=== PATIENT | female | born 1990 | race Two or more races ===

== ENCOUNTER 2018-02-08 12:56 | Emergency (ER) | payer SELFPAY ==
[2018-02-08 14:26] LABS: PLATELET COUNT 441 10^3/uL (150-400)
[2018-02-08] MEDS ORDERED: NS 1,000 ML IV ONE (15:29)
[2018-02-08] MEDS ORDERED: HYDROmorphONE/DILAUDID 2 MG/ML INJ IVP ONE (15:29)
[2018-02-08] MEDS ORDERED: ONDANSETRON 4 MG/2 ML VIAL IVP ONE (15:29)
--- NOTE | 2018-02-08 15:34 | EDPHY ---
H & P Stated Complaint: abd pain x3 days.,chills, vomited x3 today. denies diarrhea Time Seen by Provider: 02/08/18 14:23 HPI/ROS: CHIEF COMPLAINT: Abdominal pain HISTORY OF PRESENT ILLNESS: This is a 27-year-old female who presents with upper abdominal pain and vomiting. She has a history of gastric bypass performed 1 year ago in [facility], [place], operated by [facility]. It is unclear why this procedure was performed--reports a long history of abdominal pain worsened by eating. She has also had a cholecystectomy. Following her gastric bypass she has been hospitalized almost monthly. During these hospitalizations she has required TPN. She was last hospitalized about 3 weeks ago and at that time had a jejunostomy placed. Comes in today with almost 3 days of gradually worsening abdominal pain. She has vomited 3 times today and vomited just prior to my interview with her. She had a small loose stool after arriving in the emergency department. She has not had fever. She denies urinary symptoms. For chronic pain she takes gabapentin 500 mg twice daily, oxycodone 15 mg twice daily, and amitriptyline 50 mg at bedtime. She uses Zofran daily for nausea and vomiting. She ran out of her medications and took her last dose is the afternoon of the day before yesterday. She has come to the [facility] from [place] with the hope that she can find a specialist that can figure out what is causing her symptoms. REVIEW OF SYSTEMS: A ten point review of systems was performed and is negative with the exception of the items mentioned in the HPI. Past medical history: Chronic abdominal pain Past surgical history: 1. Gastric bypass 1 year ago 2. Jejunostomy placed about 3 weeks ago 3. Tubal ligation 4. Cholecystectomy Family history: Positive for diabetes and reactive airway disease Social history: She lives in [facility], [place], operated by [facility]. She is here with a cousin. She does not use tobacco products, alcohol, or illicit drugs. General Appearance: Alert. Vital signs reviewed. Blood pressure 105/58. Eyes: Pupils equal and round, no conjunctival injection, no discharge. Anicteric. ENT, Mouth: Mucous membranes are slightly dry, no oropharyngeal erythema or edema. Neck: No lymphadenopathy, supple. Respiratory: Lungs are clear to auscultation; no wheezes, rales, or rhonchi. Cardiovascular: Regular rate and rhythm; no murmur, rub, or gallop. Gastrointestinal: Abdomen is soft and mildly diffusely tender, no masses or organomegaly, bowel sounds decreased. Skin: Warm and dry, no rashes on exposed skin, normal color. Multiple tattoos. Back: Nontender to palpation over the thoracolumbar spine. No CVAT. Extremities: No lower extremity edema, no calf tenderness or swelling. Neurological: Alert and oriented. Moving all four extremities easily and equally. Psychiatric: Normal affect. - Personal History LMP (Females 10-55): 22-28 Days Ago Current Tetanus Diphtheria and Acellular Pertussis (TDAP): Yes Tetanus Vaccine Date: 2016 - Medical/Surgical History Hx Asthma: No Hx Chronic Respiratory Disease: No Hx Diabetes: No Hx Cardiac Disease: No Hx Renal Disease: No Hx Cirrhosis: No Hx Alcoholism: No Hx HIV/AIDS: No Hx Splenectomy or Spleen Trauma: No Other PMH: Med hx-"not eating",tube feeding pain. Surg-gastric bypass - Social History Smoking Status: Never smoked Constitutional: Initial Vital Signs Temperature (C) 37.0 C 02/08/18 13:04 Heart Rate 88 02/08/18 13:04 Respiratory Rate 16 02/08/18 13:04 Blood Pressure 105/58 L 02/08/18 13:04 O2 Sat (%) 99 02/08/18 13:04 O2 Delivery Mode Room Air Allergies/Adverse Reactions: No Known Allergies Allergy (Verified 02/08/18 13:02) Home Medications: Medication Instructions Recorded Amitriptyline HCl 02/08/18 Amitriptyline HCl [Elavil 50 mg 50 mg PO HS #21 tab 02/08/18 (*)] Gabapentin 02/08/18 Gabapentin 600 mg PO BID #42 tablet 02/08/18 Oxycodone HCl 02/08/18 Oxycodone HCl 15 mg PO BID 21 Days capsule 02/08/18 Zofran 02/08/18 Medical Decision Making - Diagnostics Imaging Results: Imaging Impressions Abdomen X-Ray 02/08/18 14:09 Impression: 1. Mildly prominent air-filled loops of small bowel left upper quadrant below the left hemidiaphragm. Bowel anastomotic sutures are also noted left upper quadrant. If symptoms persist, consider CT imaging to evaluate for possible focal point of obstruction. 2. Percutaneous small bowel feeding tube is present left mid abdomen. Abdomen CT 02/08/18 15:29 Impression: 1. No acute findings in the abdomen or pelvis. 2. Indeterminate anterior mesenteric nodule, which could be related to reactive node. Follow-up CT is recommended in 3 months to assess for change. 3. Additional findings as above. Findings discussed with Dr. Queta Clay on 02/08/2018 at 16:00. ED Course/Re-evaluation: 27-year-old female status post gastric bypass for unclear reasons with persistent abdominal pain and multiple hospitalizations for malnutrition. Most recently she had a jejunal feeding tube placed. She presents today with worsening abdominal pain and vomiting. She has also run out of her medications , which include an opiate. She has been without medications for 2 days. She spoke with her caregiver in [place] who recommended evaluation. Patient understands that she could be experiencing an exacerbation of her chronic abdominal pain, could have a bowel obstruction, could be withdrawing from opiates. She is hoping that an answer can be found to her chronic pain. 4:30 p.m.: Patient re-evaluated. She continues with some abdominal tenderness , no guarding. She has not had any further vomiting after receiving 1 L IV normal saline, 4 mg Zofran IV, and 0.5 mg Dilaudid IV. She feels somewhat better and thinks that she will likely be fine at home when she can resume her medications. I am writing prescriptions for 21 days worth of her oxycodone, gabapentin, and amitriptyline--in the doses that she provided except for the gabapentin which she stated was 500 mg and I am prescribing 600 mg pills. She is given referral to Gastroenterology and for primary care. She is advised to try to gather up her medical records from [place]. She understands that she will not receive further opiate prescriptions from the emergency department. We reviewed the danger signs that should prompt her to return for re-evaluation. I reviewed her radiographs and laboratory studies. She Has some bacteriuria and pyuria but no urinary symptoms whatsoever. I have questioned her twice about this. I do not recommend antibiotics. She was re-evaluated at 5:00 p.m.. She continues to feel well enough to return home. Abdominal exam is unchanged, some mild bilateral upper abdominal tenderness without peritoneal signs. Differential Diagnosis: Abdominal pain including but not limited to opiate withdrawal, appendicitis, bowel obstruction, gastritis and urinary tract infection. - Data Points Laboratory Results: Laboratory Results 02/08/18 14:20 02/08/18 14:20 02/08/18 02/08/18 02/08/18 15:40 14:20 14:20 WBC 5.00 10^3/uL 10^3/uL (3.80-9.50) RBC 4.72 10^6/uL 10^6/uL (4.18-5.33) Hgb 10.2 g/dL L g/dL (12.6-16.3) Hct 33.3 % L % (38.0-47.0) MCV 70.6 fL L fL (81.5-99.8) MCH 21.6 pg L pg (27.9-34.1) MCHC 30.6 g/dL L g/dL (32.4-36.7) RDW 16.8 % H % (11.5-15.2) Plt Count 441 10^3/uL H 10^3/uL (150-400) MPV 8.2 fL L fL (8.7-11.7) Neut % (Auto) 74.8 % H % (39.3-74.2) Lymph % (Auto) 19.8 % % (15.0-45.0) [place] % (Auto) 3.2 % L % (4.5-13.0) Eos % (Auto) 1.8 % % (0.6-7.6) Baso % (Auto) 0.2 % L % (0.3-1.7) Nucleat RBC Rel Count 0.0 % % (0.0-0.2) Absolute Neuts (auto) 3.74 10^3/uL 10^3/uL (1.70-6.50) Absolute Lymphs (auto) 0.99 10^3/uL L 10^3/uL (1.00-3.00) Absolute Monos (auto) 0.16 10^3/uL L 10^3/uL (0.30-0.80) Absolute Eos (auto) 0.09 10^3/uL 10^3/uL (0.03-0.40) Absolute Basos (auto) 0.01 10^3/uL L 10^3/uL (0.02-0.10) Absolute Nucleated RBC 0.00 10^3/uL 10^3/uL (0-0.01) Immature Gran % 0.2 % % (0.0-1.1) Immature Gran # 0.01 10^3/uL 10^3/uL (0.00-0.10) Sodium 145 mEq/L mEq/L (135-145) Potassium 4.1 mEq/L mEq/L (3.5-5.2) Chloride 108 mEq/L mEq/L (97-110) Carbon Dioxide 28 mEq/l mEq/l (22-31) Anion Gap 9 mEq/L mEq/L (8-16) BUN 12 mg/dL mg/dL (7-23) Creatinine 0.6 mg/dL mg/dL (0.6-1.0) Estimated GFR > 60 Glucose 110 mg/dL H mg/dL (70-100) Calcium 9.2 mg/dL mg/dL (8.5-10.4) Total Bilirubin 0.5 mg/dL mg/dL (0.1-1.4) AST 16 IU/L IU/L (14-46) ALT 29 IU/L IU/L (9-52) Alkaline Phosphatase 104 IU/L IU/L (38-126) Total Protein 7.3 g/dL g/dL (6.3-8.2) Albumin 3.9 g/dL g/dL (3.5-5.0) Amylase 87 IU/L IU/L (30-110) Lipase 336 IU/L H IU/L (23-300) Urine Color PALE YELLOW Urine Appearance HAZY Urine pH 7.0 (5.0-7.5) Ur Specific Yoder <= 1.005 (1.002-1.030) Urine Protein NEGATIVE (NEGATIVE) Urine Ketones NEGATIVE (NEGATIVE) Urine Blood NEGATIVE (NEGATIVE) Urine Nitrate NEGATIVE (NEGATIVE) Urine Bilirubin NEGATIVE (NEGATIVE) Urine Urobilinogen 0.2 EU EU (0.2-1.0) Ur Leukocyte Esterase 2+ H (NEGATIVE) Urine RBC NONE SEEN /hpf /hpf (0-3) Urine WBC 5-10 /hpf H /hpf (0-3) Ur Epithelial Cells 2+ /lpf H /lpf (NONE-1+) Urine Bacteria 2+ /hpf H /hpf (NONE SEEN) Urine Mucus 1+ /lpf /lpf (NONE-1+) Urine Yeast OCCASIONAL /hpf H /hpf (NONE SEEN) Urine Glucose NEGATIVE (NEGATIVE) Medications Given: Discontinued Medications Hydromorphone HCl (Dilaudid) 0.5 mg IVP EDNOW ONE Stop: 02/08/18 15:30 Last Admin: 02/08/18 15:59 Dose: 0.5 mg Sodium Chloride (Ns) 1,000 mls @ 0 mls/hr IV EDNOW ONE; Wide Open PRN Reason: Protocol Stop: 02/08/18 15:30 Last Admin: 02/08/18 15:54 Dose: 1,000 mls Ondansetron HCl (Zofran) 4 mg IVP EDNOW ONE Stop: 02/08/18 15:30 Last Admin: 02/08/18 15:57 Dose: 4 mg Departure - Departure Disposition: Home, Routine, Self-Care Clinical Impression: Opioid withdrawal Abdominal pain Qualifiers: Abdominal location: upper abdomen, unspecified Qualified Code(s): R10.10 - Upper abdominal pain, unspecified Condition: Good Instructions: Opioid Withdrawal (ED), Chronic Abdominal Pain (ED) Additional Instructions: I think that your pain and vomiting today is a combination of withdrawal from your medications (oxycodone) and the ongoing pain that you have been experiencing for a long time. We do not find signs of a bowel obstruction. I am renewing your prescriptions, but you need to set up an appointment with a primary care doctor to receive further prescription renewals. You won't be able to get another opioid prescription from the emergency department. You will have three weeks of medication. If you are worse--persistent vomiting, worsening pain, fever, any new or concerning symptoms--please be re-evaluated. Use your tube feedings so that you stay nourished. I am referring you to a premix operator concentrate (specialist in abdominal problems), Dr. Foote. It is fine for you to see any doctor in his group. I am giving you two names for primary care--Dr. Huizar and [facility]. I know that [facility] will take your insurance. You need to call them to arrange to register as a patient if you want to be seen there. Referrals: Dayana Huizar MD [Medical Doctor] - As per Instructions Marcelino Foote MD [Medical Doctor] - As per Instructions [facility],. [Clinic] - As per Instructions Prescriptions: Amitriptyline HCl [Elavil 50 mg (*)] 50 mg PO HS #21 tab Gabapentin 600 mg PO BID #42 tablet Oxycodone HCl 15 mg PO BID 21 Days capsule
[2018-02-08] MEDS ORDERED: IOPAMIDOL (ISOVUE-300) 100 ML BTL ONE (15:35)
[2018-02-08 17:12] VITALS: BP 118/71
== END 2018-02-08 17:09 | disposition home or self-care (01) ==
LOC: CED 12:56
DX: R10.10 Upper abdominal pain, unspecified (principal); F11.23 Opioid dependence with withdrawal; E86.9 Volume depletion, unspecified; Z90.49 Acquired absence of other specified parts of digestive tract
CPT/HCPCS: 74022-PO; 74177-PO; 80053-PO; 81003-PO; 81015-PO; 82150-PO; 83690-PO; 85025-PO; 96374; J1170; J2405; Q9967